=== PATIENT | male | born 1960 | race Caucasian/White ===

== ENCOUNTER → 2018-05-10 11:39 | Outpatient (CLI) | payer OTHER, SELFPAY ==
[2018-05-10 16:05] LABS: T4 Free Direct 1.49 ng/dL (0.76-1.46)
--- OUTSIDE RECORDS SUMMARY | 2018-07-05 14:56 | XMS RPT_ITS ---
:1960 Author Organization OH[facility] Care Team Providers Name Role Phone VINICIUS CASTELLANOS, JANICE Solis Primary Care Unavailable DARINEL MERCER MD Attending Unavailable JANICE COLVIN MD Primary Care Unavailable GLENDY KENDALL CNP Attending Unavailable Charly Gay Attending Unavailable Charly Gay Primary Care Unavailable UNKNOWN, PROVIDER Attending Unavailable PROBLEMS PROBLEMS DATE TYPE CONDITION / ATTENDING STATUS SOURCE CODE 05/10/2018 Unknown R53.83 - Other Charly Gay Active Jay fatigue / Community R53.83(ICD-10) Hospital Repository 11/24/2017 Admitting Unknown / Unknown Active [facility] Medical diagnosis UNK(Unknown) [facility] Repository PROCEDURES PROCEDURES No Procedure Records FoundRESULTS RESULTS THYROID STIM HORMONE Collected: 05/10/2018 Status: F Source: [place] (TSH) 11:46 AM [facility] REPOSITORY TYPE CODE TESTS RESULT OUT OF RANGE REFERENCE UNITS LAB L501.9520 0.358-3.74 uIU/mL Normal TSH 1.40 Performed By: #### L501.9520, L506.0400 #### [facility] [address] [place], [address] T4 FREE DIRECT Collected: 05/10/2018 Status: F Source: [place] 11:46 AM [facility] REPOSITORY TYPE CODE TESTS RESULT OUT OF REFERENCE UNITS RANGE LAB L506.0400 0.76-1.46 ng/dL High T4 FREE 1.49 DIRECT Performed By: #### L501.9520, L506.0400 #### [facility] [address] [place], [address] CBC Collected: 12/18/2017 Status: F Source: [facility] 10:08 AM [facility] REPOSITORY TYPE CODE TESTS RESULT OUT OF REFERENCE UNITS RANGE LAB WBC(LOINC) 4.60-10.80 10 3/mcL WBC 7.40 LAB RBCCT(LOINC 4.04-6.13 10 6/mcL ) RBC 4.87 LAB HGB(LOINC) 14.0-18.0 G/dL Hgb 14.8 LAB HCT(LOINC) 42.0-52.0 % Hct 43.6 LAB MCV(LOINC) 80.0-94.0 fL MCV 89.4 LAB MCH(LOINC) 27.0-31.2 pg MCH 30.3 LAB MCHC(LOINC) 31.8-35.4 G/dL MCHC 33.9 LAB RDW(LOINC) 11.5-14.5 % RDW 12.9 LAB PLT(LOINC) 130-400 10 3/mcL Platelet 243 LAB MPV(LOINC) 7.4-10.4 fL Low MPV 7.1 Performed By: #### ANEU, ADIFF, GFR, CBC, TSH, CMP #### [address] [address] .AUTO DIFF Collected: 12/18/2017 Status: F Source: [facility] 10:08 AM [facility] REPOSITORY TYPE CODE TESTS RESULT OUT OF REFERENCE UNITS RANGE LAB DANIELITO(LOINC) 37.0-80.0 % Neutrophil % 54.7 LAB LYM(LOINC) 10.0-50.0 % Lymphocyte % 33.2 LAB MON(LOINC) 1.7-13.0 % Monocyte % 6.9 LAB EO(LOINC) 0.0-7.0 % Eosinophil % 4.6 LAB BAS(LOINC) 0.0-2.5 % Basophil % 0.6 LAB ABLYM(LOIN 0.77-3.85 10 3/mcL C) Lymphocyte, 2.40 Absolute LAB YURIDIA(LOINC 0.15-1.00 10 3/mcL ) Monocyte, 0.50 Absolute LAB AEOS(LOINC 0.00-0.40 10 3/mcL ) Eosinophil, 0.30 Absolute LAB ABAS(LOINC 0.00-0.19 10 3/mcL ) Basophil, 0.00 Absolute Performed By: #### ANEU, ADIFF, GFR, CBC, TSH, CMP #### [address] [place], [place] [address] .NEUABS Collected: 12/18/2017 Status: F Source: [facility] 10:08 AM [facility] REPOSITORY TYPE CODE TESTS RESULT OUT OF REFERENCE UNITS RANGE LAB ANEU(LOINC) 2.85-6.16 10 3/mcL Neutrophil, 4.00 Absolute Performed By: #### ANEU, ADIFF, GFR, CBC, TSH, CMP #### [address] [address] CMP Collected: 12/18/2017 Status: F Source: [facility] 10:08 [facility] REPOSITORY TYPE CODE TESTS RESULT OUT OF REFERENCE UNITS RANGE LAB GLU(LOINC) 70-105 mg/dL Glucose High Level 107 LAB NA(LOINC) 136-146 mEq/L Sodium Level 138 LAB K(LOINC) 3.5-5.1 mEq/L Potassium Level 4.7 LAB CL(LOINC) 98-107 mEq/L Chloride 102 LAB CO2(LOINC) 22-29 mEq/L CO2 High 30 LAB EBAL(LOINC mEq/L ) Electrolyte Balance 6.0 LAB BUN(LOINC) 7.0-18.0 mg/dL BUN 17.3 LAB CRE(LOINC) 0.6-1.2 mg/dL Creatinine Lvl (s) 1.0 LAB BC(LOINC) 7-27 ratio BUN/Creatinine 17 Ratio LAB CA(LOINC) 8.4-10.2 mg/dL Calcium Lvl 9.4 LAB PROT(LOINC 6.0-8.3 G/dL ) Total Protein 6.9 LAB ALB(LOINC) 3.5-5.0 G/dL Albumin Level 4.7 LAB GLB(LOINC) G/dL Globulin 2.2 LAB AG(LOINC) 1.1-2.5 ratio A/G Ratio 2.1 LAB BILT(LOINC 0.2-1.0 mg/dL ) Bili Total 0.4 LAB AP(LOINC) 40-135 IU/L Alk Phos 54 LAB AST(LOINC) 10-40 IU/L AST/SGOT 13 LAB ALT(LOINC) 10-35 IU/L ALT/SGPT 16 Performed By: #### ANEU, ADIFF, GFR, CBC, TSH, CMP #### [address] [address] .GFR Collected: 12/18/2017 Status: F Source: [facility] 10:08 [facility] REPOSITORY TYPE CODE TESTS RESULT OUT OF REFERENCE UNITS RANGE LAB GFRAA(LOINC ml/min/1.73 ) sqm GFR >60 [place] Result Comment: GFR Population mean for , Non- Americans Ages 20-29 = 116 mL/min/1.73 sq.m. Ages 30-39 = 107 mL/min/1.73 sq.m. Ages 40-49 = 99 mL/min/1.73 sq.m. Ages 50-59 = 93 mL/min/1.73 sq.m. Ages 60-69 = 85 mL/min/1.73 sq.m. Ages 70+ = 75 mL/min/1.73 sq.m. Chronic Kidney Disease: Less than 60 mL/min/1.73 square meters End Stage Renal Disease: Less than 15 mL/min/1.73 square meters LAB GFRNO(LOINC) ml/min/1.73sqm GFR Non- >60 Result Comment: GFR Population mean for , Non- Americans Ages 20-29 = 116 mL/min/1.73 sq.m. Ages 30-39 = 107 mL/min/1.73 sq.m. Ages 40-49 = 99 mL/min/1.73 sq.m. Ages 50-59 = 93 mL/min/1.73 sq.m. Ages 60-69 = 85 mL/min/1.73 sq.m. Ages 70+ = 75 mL/min/1.73 sq.m. Chronic Kidney Disease: Less than 60 mL/min/1.73 square meters End Stage Renal Disease: Less than 15 mL/min/1.73 square meters Performed By: #### ANEU, ADIFF, GFR, CBC, TSH, CMP #### [address] [place], [place] [address] TSH Collected: 12/18/2017 Status: F Source: [facility] 10:08 AM [facility] REPOSITORY TYPE CODE TESTS RESULT OUT OF RANGE REFERENCE UNITS LAB TSH(LOINC) 0.27-4.20 mcIU/mL TSH 1.39 Performed By: #### ANEU, ADIFF, GFR, CBC, TSH, CMP #### [address] [place], [place] [address] DOSETRACK Observed: 11/24/2017 Status: UNK Source: [facility] 6:57 AM [facility] REPOSITORY Test Dose report. Name: ANGELA Raymond Accession Number: [id number] Dose Type: CT Exam: THOR-C Max CTDIVol: 16.83 mGy DLP: 661.52 mGy*cm CT 3 CT THORAX W/O CON [id number] [id number] [id number] [id number] 183394 Chest 480.0000 480.0000 1 [id number] [id number] [id number] 815168 Chest 480.0000 480.0000 1 [id number] [id number] Chest [id number] [id number] 20.0000 1.3800 362.5000 600.0000 771315 1 25.39 [facility] PATIENT NAME: ANGELAJESSY [address] [facility] MEDICAL REC #: [id number] [place] [address] ADMIT DATE: DISCHARGE DATE: DOSETRACK ATTENDING PHY: Darinel Mercer MD [facility] PATIENT NAME: JESSY MILLER [facility] Dr. Ramírez MEDICAL REC #: [id number] [place] [address] ADMIT DATE: DISCHARGE DATE: DOSETRACK ATTENDING PHY: Darinel Mercer MD CT THORAX W/O CON Observed: 11/24/2017 Status: F Source: [facility] 6:57 AM [facility] REPOSITORY CT THORAX W/O CON Ordering Physician: Darinel Mercer MD 11/24/2017 2:[address] THORAX WITHOUT IV CONTRAST: Clinical Statement: Nonspecific findings of lung field, post heart surgery follow-up on lungs. Previous CT 11/14/2016 noted moderate right pleural effusion, right lower lobe complete atelectasis. 09/30/2016 CT noted bilateral nodules 4 to 5 mm left lower lobe, 3 mm left lower lobe, 2 mm right lower lobe, 3 to 4 mm right lower lobe Comparison: None available TECHNIQUE: Transaxial continuous 2.5 mm slices were obtained from the apices of the lungs through the level of the diaphragms without IV contrast. Coronal reformats were also obtained. FINDINGS: No pleural effusion. There is minimal linear scarring in the right middle and lower lobes. Some of the right lower lobe opacities are somewhat nodular in appearance measuring 12 mm as seen on image 89/146, slightly due to round atelectasis. There is a 2 right lower lobe nodule on image 71. There is a 2 mm left lower lobe nodule on image 92. 2 mm left lower lobe nodules seen on image 107. The thyroid gland is partially visualized. Scattered calcified plaque is seen in the aorta and coronary arteries. There are postoperative changes of aortic valvuloplasty with midline sternotomy wires. Subcentimeter mediastinal nodes are seen. Further evaluation is limited without IV contrast. Water density cyst is noted at the midpole the right kidney. There are no acute osseous findings. IMPRESSION: 13 mm right lower lobe nodular opacity which most likely represents rounded atelectasis or scarring. Short-term follow-up noncontrast CT chest in three months is suggested. Other sub-5 mm bilateral lower lobe pulmonary nodules. ---- Electronic Signature on File ---- Signed By: Clemente Goff MD [email or web address] Dictated: 11/24/2017 3:40 PM Signed: 11/24/2017 3:59 PM Reported By: CLEMENTE GOFF M.D. Signed By: CLEMENTE GOFF M.D. ALLERGIES ALLERGIES No Allergies Records FoundENCOUNTERS ENCOUNTERS ADMIT/DISCHARGE ACCOUNT NUMBER ADMITTING ENCOUNTER LOCATION SOURCE CLASS 05/10/2018 [id number] [place] [facility] ding:[facility] Repository 12/18/2017/12/19/19 [id number] Ambulatory [address] ding:[facility] Repository 11/24/2017 [id number] [place] [facility]KAYLA 11/15/2017 [id number] Ambulatory BBuilding: [facility] Repository PAYERS PAYERS ENCOUNTER GUARANTOR PAYER SUBSCRIBER SOURCE 05/10/2018 JESSY Primary JESSY [place] [id number] S Insurance:Cassandra [facility]: [facility] SMYSER Number: [id number] [id number] Repository [address]Tti: [phone]) Date:1905-03-23[phone] () [place], [place] [address]ZJ: 05/10/2018 Secondary NOT GIVENUNK Jay Insurance:SELF PAY Community INSURANCEPolicy Number: Hospital Effective Repository Date:2018-05-10 12/18/2017 JESSY E [facility] JOSEB: [facility] [id number] GARCIAB: [facility] [id number] S Number: [id number] Repository [place]ER [id number] [address] [place], [place] Date:2017-12-18 [place], [place] [address]WENCESLAO [id number] Name:MACARIO [address]Abo: [phone] [email or web address] HOSPITALstormy [address]Aswclcazuzq, [phone] (HP)Tel: l: [phone]: [phone] (WP) (HP) (WP) 11/24/2017 EJSSY E Primary JESSY [id number] Insurance:[facility] MarketplacePolicy Repository Line [place], [place] Number: [id number]: [phone] [id number] [phone] (HP) Date:8185-09-95[address], [place] [address]QB: 11/15/2017 JESSY E Primary [facility] INSURANCE PRIMARYPolicy [id number] Number: [place] [facility] [place]:2016-11-[place], [place] [id number] Name:Dimitry [id number] [email or web address] County Memorial Hospital l: (HP) (WP)
== END ==
PROVIDERS: Family Provider Family Medicine; PCP Family Medicine; Visit Provider Family Medicine
DX: R53.83 Other fatigue (principal)
CPT/HCPCS: 36415; 84439; 84443

== ENCOUNTER → 2019-04-15 09:16 | Outpatient (CLI) | payer OTHER, SELFPAY ==
[2019-04-15 12:18] LABS: ALB/GLOB Ratio 1.1 RATIO (0.9-2.4); AST(SGOT) 18 U/L (15-37); Alanine Aminotransfer ALT/SGPT 34 U/L (16-61); Albumin, Serum 3.9 g/dL (3.2-5.0); Alkaline Phosphatase 61 U/L (45-117); Anion Gap 8 (5-15); BUN 18 mg/dL (7-18); BUN/Creat Ratio 15.7 RATIO (10-20); Calcium,Total 8.7 mg/dL (8.5-10.1); Chloride 103 mmol/L (98-107); Cholesterol 235 mg/dL (200); Creatinine, Serum 1.15 mg/dL (0.70-1.30); EST Glomerular Filtration Rate 70 mL/min (>60); Est Glom Filt Rate - Afr Amer 84 mL/min (>60); Globulin 3.6 g/dL (2.2-4.2); Glucose 107 mg/dL (74-106); High Density Lipoprotein 67 mg/dL; PSA,Total - Annual Screen 1.51 ng/mL (0.00-4.00); Potassium 4.3 mmol/L (3.5-5.1); Protein, Total 7.5 g/dL (6.4-8.2); Sodium Level 140 mmol/L (136-145); Triglycerides 101 mg/dL; Very Low Density Lipoprotein 20 mg/dL (5-40)
[2019-04-15 12:20] LABS: Absolute Lymphocyte Count 2.16 X10^3/uL (0.83-4.51); Absolute Neutrophil Count 5.7 X10^3/uL (2.0-7.7); Basophil# 0.08 X10^3/uL; Basophil% 0.8 % (0-1); Eosinophil# 1.39 X10^3/uL; Eosinophils% 13.7 % (0-5); Hematocrit 47.8 % (40-54); Hemoglobin 15.4 g/dL (13.0-16.5); Lymphocyte # 2.16 X10^3/ul (4.0); Lymphocyte % 21.2 % (19-41); Mean Corp Hgb Conc 32.2 g/dL (32-36); Mean Corpuscular Hgb 30.4 pg (27.0-32.0); Mean Corpuscular Volume 94.3 fL (80-94); Mean Platelet Vol. 9.6 fl (6.2-12.0); Monocyte# 0.78 X10^3/uL; Monocyte% 7.7 % (0-10); NRBC Flagged by Analyzer 0 % (0-5); Neutrophil # 5.71 X10^3/uL (2.7-7.7); Neutrophil % 56.1 % (47-70); Platelet Count 260 K/mm3 (150-450); RBC Distribution Width CV 12.9 % (11.6-14.6); RBC Distribution Width SD 44.4 fl (35.1-43.9); Red Blood Count 5.07 M/mm3 (4.6-6.2); White Blood Count 10.2 K/mm3 (4.4-11.0)
[2019-04-15 13:54] LABS: Hemoglobin A1c 5.4 % (4.2-6.3)
== END ==
PROVIDERS: Family Provider Family Medicine; PCP Family Medicine; Visit Provider Family Medicine
DX: Z00.00 Encounter for general adult medical examination without abnormal findings (principal); Z12.5 Encounter for screening for malignant neoplasm of prostate; R73.01 Impaired fasting glucose
CPT/HCPCS: 36415; 80053; 80061; 83036; 84153; 85025; G0103

== ENCOUNTER → 2020-05-05 17:29 | Outpatient (CLI) | payer OTHER, SELFPAY | PROVIDERS: PCP Family Medicine; Referring Provider Family Medicine; Visit Provider Family Medicine | DX: Z03.818 Encounter for observation for suspected exposure to other biological agents ruled out (principal) | CPT/HCPCS: 87635; C9803; U0003 ==

== ENCOUNTER → 2025-03-13 | Outpatient (CLI) | payer BC, SELFPAY ==
[2025-03-13 12:34] LABS: Hematocrit 44.1 % (40-54); Hemoglobin 14.5 g/dL (13.0-16.5); Immature Granulocytes Count 0.030 X10^3/uL (0.0-0.0); Mean Corp Hgb Conc 32.9 g/dL (32-36); Mean Corpuscular Volume 91.3 fL (80-94); Mean Platelet Vol. 9.6 fl (6.2-12.0); NRBC Flagged by Analyzer 0 % (0-5); Platelet Count 245 K/mm3 (150-450); RBC Distribution Width CV 12.5 % (11.6-14.6); RBC Distribution Width SD 41.8 fl (35.1-43.9); Red Blood Count 4.83 M/mm3 (4.6-6.2); White Blood Count 8.9 K/mm3 (4.4-11.0)
[2025-03-13 12:46] LABS: AST(SGOT) 20 U/L (<=37); Alanine Aminotransfer ALT/SGPT 17 U/L (<=46); Albumin, Serum 4.5 g/dL (3.4-4.8); Alkaline Phosphatase 63 U/L (40-129); Anion Gap 12 (5-15); BUN 14 mg/dL (4-19); BUN/Creat Ratio 13.0 RATIO (10-20); Calcium,Total 9.1 mg/dL (7.6-11.0); Carbon Dioxide 25.7 mmol/L (21.0-32.0); Chloride 101 mmol/L (98-108); Cholesterol 209 mg/dL (<=200); Globulin 2.8 g/dL (2.2-4.2); Glucose 111 mg/dL (70-99); Low Density Lipoprotein Calc. 123 mg/dL; PSA,Total - Annual Screen 1.83 ng/mL (0.02-4.00); Potassium 4.7 mmol/L (3.3-5.1); Triglycerides 85 mg/dL; Very Low Density Lipoprotein 17 mg/dL (5-40); cholesterol:hdl ratio screen 3.05
== END | disposition home or self-care (01) ==
LOC: MTLAB 10:27
PROVIDERS: PCP Family Medicine; Referring Provider Family Medicine; Visit Provider Family Medicine
DX: Z00.00 Encounter for general adult medical examination without abnormal findings (principal); R73.01 Impaired fasting glucose; Z12.5 Encounter for screening for malignant neoplasm of prostate
CPT/HCPCS: 36415; 80053; 80061; 83036; 84153; 85025; G0103